=== PATIENT | female | born 1990 | race Caucasian/White ===

== ENCOUNTER 2016-05-29 11:04 | Emergency (ER) | payer MEDICAID ==
[~2016-05-29] VITALS: Ht 172.7 cm; Wt 61.2 kg
[2016-05-29 11:16] VITALS: BP 114/70
[2016-05-29] MEDS: ALPRAZolam 0.5 MG TAB PO ONE (11:49)
== END 2016-05-29 12:44 | disposition home or self-care (01) ==
LOC: ER 11:13
DX: F41.0 Panic disorder [episodic paroxysmal anxiety] (principal)

== ENCOUNTER 2016-06-17 19:05 | Emergency (ER) | payer MEDICAID ==
[~2016-06-17] VITALS: Ht 165.1 cm; Wt 59.0 kg
[2016-06-17 19:36] VITALS: BP 126/66
[2016-06-17] MEDS ORDERED: IBUPROFEN 600 MG TAB PO ONE (22:45)
[2016-06-17] MEDS ORDERED: CYCLOBENZAPRINE HCL 10 MG TAB PO ONE (22:45)
== END 2016-06-17 23:40 | disposition home or self-care (01) ==
LOC: ER 19:05
DX: S16.1XXA Strain of muscle, fascia and tendon at neck level, initial encounter (principal); M54.12 Radiculopathy, cervical region; X58.XXXA Exposure to other specified factors, initial encounter; Y93.89 Activity, other specified; Y99.8 Other external cause status; Y92.89 Other specified places as the place of occurrence of the external cause
CPT/HCPCS: 81025

== ENCOUNTER 2016-12-09 20:40 | Emergency (ER) | payer MEDICAID ==
[~2016-12-09] VITALS: Ht 165.1 cm; Wt 60.8 kg
[2016-12-09 21:04] VITALS: BP 112/70
== END 2016-12-09 22:42 | disposition home or self-care (01) ==
LOC: ER 20:50
DX: J02.9 Acute pharyngitis, unspecified (principal); H92.02 Otalgia, left ear

== ENCOUNTER 2017-02-02 19:49 | Emergency (ER) | payer MEDICAID ==
[~2017-02-02] VITALS: Ht 165.1 cm; Wt 59.0 kg
[2017-02-02 20:15] VITALS: BP 103/60
[2017-02-02 20:25] LABS: Urine RBC None Seen /hpf (0 - 4)
[2017-02-02 20:37] LABS: Urine Bilirubin Negative (Negative); Urine Blood Negative /uL (Negative); Urine Color Yellow (Yellow); Urine Glucose Normal (Normal); Urine Ketone Negative (Negative); Urine Mucus FEW (None Seen); Urine Nitrite Negative (Negative); Urine Squamous Epithelial Cell FEW /hpf (<5); Urine Urobilinogen Normal (Negative)
[2017-02-02 20:42] LABS: Basophils # (auto) 0.1 uL; Basophils % (auto) 2.4 % (0.0-2.0); Eosinophils # (auto) 0.2 uL; Eosinophils % (auto) 3.5 % (0.0-7.0); Hematocrit 43.8 % (36.0-46.0); Hemoglobin 14.8 g/dL (12.2-16.2); Lymphocytes # (auto) 2.2 uL; Lymphocytes % (auto) 42.6 % (10.0-50.0); Mean Corpuscular Hemoglobin 31.4 pg (28.0-32.0); Mean Corpuscular Hgb Conc. 33.8 g/dL (32.0-36.0); Mean Platelet Volume 8.8 fL (6.9-10.8); Monocytes # (auto) 0.4 uL; Neutrophils # (auto) 2.2 uL; Neutrophils % (auto) 43.5 % (37.0-80.0); Platelet Count (auto) 201 10^3/uL (140-450); Red Cell Distribution Width 12.8 % (11.8-14.3); White Blood Cell 5.1 10^3/uL (4.4-10.8)
[2017-02-02 21:06] LABS: Albumin 4.2 g/dL (3.4-5.0); BUN/Creatinine Ratio 10.4; Bilirubin, Total 1.3 mg/dL (0.2-1.0); Calcium 8.9 mg/dL (8.5-10.1); Magnesium 2.3 mg/dL (1.6-2.6); Potassium 3.7 mmol/L (3.5-5.1); Total Protein 7.6 g/dL (6.4-8.2)
[2017-02-02] MEDS ORDERED: ONDANSETRON ODT 4 MG TAB PO ONE (21:45)
== END 2017-02-02 21:38 | disposition home or self-care (01) ==
LOC: ER 19:54 → UNDOADMIN 19:55 → TELE 19:55 → ER 21:38
DX: K52.9 Noninfective gastroenteritis and colitis, unspecified (principal); F17.210 Nicotine dependence, cigarettes, uncomplicated
CPT/HCPCS: 36415; 80053; 81001; 81025; 82150; 83690; 83735; 85025; 99284; Q0162